=== PATIENT | male | born 1990 | race Caucasian/White ===

== ENCOUNTER 2016-12-10 04:30 | Emergency (ER) | payer SELFPAY ==
[2016-12-10] MEDS ORDERED: Sodium Chloride 0.9% 1,000 ML IV ONE ×2 (04:55→06:47)
[2016-12-10] MEDS ORDERED: Ondansetron 4 MG/2 ML SDV IV ONE (05:02)
[2016-12-10] MEDS ORDERED: HYDROmorphone 1 MG/ML Syringe IVPUSH ONE ×2 (05:03→07:06)
--- NOTE | 2016-12-10 05:04 | EDM.PDOC ---
<Camille Carbajal - Last Filed: 12/10/16 06:58> ED HPI GENERAL MEDICAL PROBLEM - General Chief Complaint: Headache Stated Complaint: MIGRAINE Time Seen by Provider: 12/10/16 04:40 Source of Information: Reports: Patient History Limitations: Reports: No Limitations - History of Present Illness INITIAL COMMENTS - FREE TEXT/NARRATIVE: c/o sever headache, starts on right side of head and moves to back of head. denies neck pain. general body aches. vomited [employer]INE. Has been trying tylenol and ibuprofen without relief. Unable to sleep due to head ache. Has had mild headaches but nothing this bad. Onset: Today Duration: Constant, Getting Worse Location: Reports: Head Quality: Reports: Throbbing Improves with: Reports: Immobilization Worsens with: Reports: Movement Headache Pain Score (Numeric/FACES): 9 - Related Data Allergies Allergy/AdvReac Type Severity Reaction Status Date / Time No Known Allergies Allergy Verified 12/10/16 04:35 Home Meds: Home Meds Cetirizine HCl/Pseudoephedrine [Zyrtec-D Tablet] 1 each PO DAILY PRN 12/10/16 [ History] Past Medical History - Past Health History Medical/Surgical History: Denies Medical/Surgical History Respiratory History: Reports: Asthma - Infectious Disease History Infectious Disease History: Reports: None Social & Family History - Family History Family Medical History: Noncontributory - Tobacco Use Smoking Status *Q: Never Smoker Second Hand Smoke Exposure: No - Caffeine Use Caffeine Use: Reports: Soda - Recreational Drug Use Recreational Drug Use: No ED ROS GENERAL - Review of Systems Constitutional: Reports: Fever HEENT: Denies: Throat Pain Respiratory: Reports: No Symptoms Cardiovascular: Reports: No Symptoms GI/Abdominal: Reports: Nausea, Vomiting Musculoskeletal: Reports: Back Pain (low chronic intermittent). Denies: Neck Pain Skin: Reports: No Symptoms Neurological: Reports: Headache. Denies: Confusion Psychiatric: Reports: No Symptoms - Physical Exam Exam: See Below Exam Limited By: No Limitations General Appearance: Alert, Moderate Distress Eye Exam: Bilateral Eye: EOMI, PERRL (4mm right upper lid droop) Ears: Normal External Exam, Normal TMs Nose: Normal Inspection Throat/Mouth: Normal Inspection Head Exam: Atraumatic, Normocephalic Neck: Normal Inspection, Full Range of Motion. No: Lymphadenopathy (L), Lymphadenopathy (R), Tender Lateral, Tender Midline Respiratory/Chest: No Respiratory Distress, Lungs Clear, Normal Breath Sounds Cardiovascular: Normal Peripheral Pulses GI/Abdominal: Normal Bowel Sounds, Soft Neuro Exam (Abbreviated): Alert, Oriented, Normal Cognition, Normal Reflexes. No: No Motor/Sensory Deficits Back Exam: Normal Inspection Extremities: Normal Inspection Psychiatric: Normal Affect, Normal Mood Skin Exam: Warm, Dry, Intact, Normal Color Course - Vital Signs Last Recorded V/S: Last Vital Signs Temp 37.3 C 12/10/16 06:56 Pulse 105 H 12/10/16 06:13 Resp 14 12/10/16 06:13 BP 112/60 12/10/16 06:13 Pulse Ox 97 12/10/16 06:13 - Orders/Labs/Meds Orders: Active Orders 24 hr Category Date Time Status CULTURE STREP A CONFIRMATION [] Stat Lab 12/10/16 05:09 Results LYME/B.BURGDORFERI IGG/IGM [REF] Stat Lab 12/10/16 07:56 Received STREP SCRN A RAPID W CULT CONF [] Stat Lab 12/10/16 05:09 Results WE[facility] VIRUS IGM [REF] Urgent Lab 12/10/16 05:00 Received Sodium Chloride 0.9% [Normal Saline] 1,000 ml Med 12/10/16 06:47 Active IV .BOLUS cefTRIAXone [Rocephin] 1 gm Med 12/10/16 08:11 Ordered Sodium Chloride 0.9% [Normal Saline] 50 ml IV ONETIME Medication Orders Sodium Chloride (Normal Saline) 1,000 mls @ 500 mls/hr IV .BOLUS ONE Stop: 12/10/16 08:46 Last Admin: 12/10/16 06:55 Dose: 500 mls/hr Labs: Laboratory Tests 12/10/16 12/10/16 12/10/16 Range/Units 05:00 05:00 05:00 WBC 8.2 (5.0-10.0) 10^3/uL RBC 5.12 (4.6-6.2) 10^6/uL Hgb 15.0 (14.0-18.0) g/dL Hct 43.9 (40.0-54.0) % MCV 85.7 (80-100) fL MCH 29.3 (27.0-34.0) pg MCHC 34.2 (33.0-35.0) g/dL Plt Count 222 (150-450) 10^3/uL Neut % (Auto) 83.6 H (42.2-75.2) % Lymph % (Auto) 11.2 L (20.5-50.1) % [place] % (Auto) 4.7 (2-8) % Eos % (Auto) 0.4 L (1.0-3.0) % Baso % (Auto) 0.1 (0.0-1.0) % Sodium 139 (135-145) mmol/L Potassium 3.6 (3.6-5.0) mmol/L Chloride 103 (101-111) mmol/L Carbon Dioxide 26.0 (21.0-31.0) mmol/L Anion Gap 13.6 BUN 16 (7-18) mg/dL Creatinine 1.0 (0.6-1.3) mg/dL Est Cr Clr Drug Dosing TNP Estimated GFR (MDRD) > 60 BUN/Creatinine Ratio 16.00 Glucose 122 H (74-105) mg/dL Calcium 9.2 (8.4-10.2) mg/dl Total Bilirubin 0.9 (0.2-1.0) mg/dL AST 26 (10-42) IU/L ALT 19 (10-60) IU/L Alkaline Phosphatase 81 (42-121) IU/L C-Reactive Protein < 0.5 (0.0-1.3) mg/dL Total Protein 7.8 (6.7-8.2) g/dl Albumin 4.5 (3.2-5.5) g/dl Globulin 3.3 Albumin/Globulin Ratio 1.36 Meds: Medications Generic Name Dose Route Start Last Admin Trade Name Freq PRN Reason Stop Dose Admin Sodium Chloride 1,000 mls @ 500 mls/hr 12/10/16 06:47 12/10/16 06:55 Normal Saline IV 12/10/16 08:46 500 mls/hr .BOLUS ONE Administration Discontinued Medications Generic Name Dose Route Start Last Admin Trade Name Freq PRN Reason Stop Dose Admin Hydromorphone HCl 1 mg 12/10/16 05:03 12/10/16 05:21 Dilaudid IVPUSH 12/10/16 05:04 1 mg ONETIME ONE Administration Hydromorphone HCl 1 mg 12/10/16 07:06 12/10/16 07:14 Dilaudid IVPUSH 12/10/16 07:07 1 mg ONETIME ONE Administration Sodium Chloride 1,000 mls @ 999 mls/hr 12/10/16 04:55 12/10/16 05:00 Normal Saline IV 12/10/16 05:55 999 mls/hr .BOLUS ONE Administration Ibuprofen 600 mg 12/10/16 06:16 12/10/16 06:22 Motrin PO 12/10/16 06:17 600 mg ONETIME ONE Administration Methylprednisolone Sodium Succinate 125 mg 12/10/16 07:09 12/10/16 07:20 Solu-Medrol IVPUSH 12/10/16 07:10 125 mg ONETIME ONE Administration Ondansetron HCl 4 mg 12/10/16 05:02 12/10/16 05:20 Zofran IV 12/10/16 05:03 4 mg ONETIME ONE Administration Ondansetron HCl Confirm 12/10/16 06:26 12/10/16 06:33 Zofran Odt Administered 12/10/16 06:27 Not Given Dose 8 mg .ROUTE .STK-MED ONE Oxycodone/Acetaminophen Confirm 12/10/16 06:26 12/10/16 06:33 Percocet 325-5 Mg Administered 12/10/16 06:27 Not Given Dose 2 tab .ROUTE .STK-MED ONE - Radiology Interpretation Free Text/Narrative:: CT head negative - Re-Assessments/Exams Free Text/Narrative Re-Assessment/Exam: 12/10/16 07:04 Pain improved with Dilaud. Preparing for discharge and worsening of headache rating 9/10 and increased pain with neck flexion 12/10/16 07:[address] Turpin with change of shift Departure - Departure Time of Disposition: 06:17 Disposition: Home, Self-Care 01 Condition: Fair Clinical Impression: Head ache Qualifiers: Headache type: unspecified Headache chronicity pattern: acute headache Intractability: not intractable Qualified Code(s): R51 - Headache - Discharge Information Instructions: General Headache Without Cause, [id number] Forms: ED Department Discharge Additional Instructions: zofran 4mg ODT one every 4 hours as needed for nausea percocet one every 6 hours as needed for pain decadron 4mg one tablet every 6 hours may alternate tylenol 1000mg every 6 hours and ibuprofen 600mg every 4 hours as needed rest push fluids follow up in clinic on Monday, Dec.13 for recheck return to ER if symptoms are worse at any time - My Orders Last 24 Hours: My Active Orders 12/10/16 07:56 LYME/B.BURGDORFERI IGG/IGM [REF] Stat 12/10/16 08:11 cefTRIAXone [Rocephin] 1 gm Sodium Chloride 0.9% [Normal Saline] 50 ml IV ONETIME - Assessment/Plan Last 24 Hours: My Active Orders 12/10/16 07:56 LYME/B.BURGDORFERI IGG/IGM [REF] Stat 12/10/16 08:11 cefTRIAXone [Rocephin] 1 gm Sodium Chloride 0.9% [Normal Saline] 50 ml IV ONETIME <Juan Turpin - Last Filed: 12/10/16 08:23> ED HPI GENERAL MEDICAL PROBLEM - History of Present Illness INITIAL COMMENTS - FREE TEXT/NARRATIVE: Assumed care of pt from Camille SANTOYO at 0700HR shift change. On recheck, pt reports he feels much better and would like to go home. Treatments [employer]ACHINE: Reports: Acetaminophen ED ROS GENERAL - Review of Systems Review Of Systems: See Below - Physical Exam Text/Narrative:: On recheck pt is A&O x3, Head is NC/AT, neck is nontender, no nuchal rigidity. Lungs clear, Heart RRR. Neuro no motor or sensory deficits. Skin normal to exam. Course - Re-Assessments/Exams Free Text/Narrative Re-Assessment/Exam: 12/10/16 08:16 I explained the exam findings, results of all diagnostic tests, working diagnosis, and any potential or additionally considered diagnoses, treatment/ disposition plan, self/home care instructions, rational for the diagnosis/ treatment plan/disposition plan, anticipated course of illness, and follow up instructions to the pt. I discussed indications for lumbar puncture, but currently pt reports minimal headache, no neck pain, has no nuchal rigidity, and normal neuro exam. I educated the pt as to the signs and symptoms that would indicate that he should return for reevaluation and consideration for lumbar puncture. The pt acknowledges understanding of the above explanation(s), and of the signs and symptoms which should prompt the return of the pt to the ER should those or any other concerning symptoms develop. Departure - Departure Time of Disposition: 08:20
[2016-12-10 05:44] LABS: CHLORIDE,CL 103 mmol/L (101-111); SODIUM,NA 139 mmol/L (135-145)
[2016-12-10] MEDS ORDERED: Ibuprofen 600 MG Tab PO ONE (06:16)
[2016-12-10] MEDS ORDERED: Ondansetron 4 MG Tab.DIS PO ONE (06:26)
[2016-12-10] MEDS ORDERED: Acetaminophen/oxyCODONE 325-5 MG Tab ONE (06:26)
[2016-12-10] MEDS ORDERED: Ondansetron 4 MG Tab.DIS ONE (06:26)
[2016-12-10] MEDS ORDERED: Acetaminophen/oxyCODONE 325-5 MG Tab PO ONE (06:26)
[2016-12-10] MEDS ORDERED: methylPREDNISolone Sodium Succinate 125 MG/2 ML SDV IVPUSH ONE (07:09)
[2016-12-10] MEDS ORDERED: cefTRIAXone 1 GM in Sodium Chloride 0.9% 50 ML IV ONE (08:11)
[2016-12-10 08:35] VITALS: BP 86/56
== END 2016-12-10 09:00 | disposition home or self-care (01) ==
LOC: DL.ED 04:30
DX: R51 Headache (principal); J45.909 Unspecified asthma, uncomplicated; Z79.899 Other long term (current) drug therapy
CPT/HCPCS: 36415; 70450; 80053; 85025; 86140; 86618; 86788; 87081; 87430; 87804; 96361; 96365; 96375; 96376; 99284; A9270; J0696; J1170; J2405; J2930; J7030; J7050

== ENCOUNTER 2017-06-09 16:09 | Emergency (ER) | payer OTHER, BC ==
[2017-06-09] MEDS ORDERED: Sodium Chloride 0.9% 10 ML Syringe FLUSH PRN (16:17)
[2017-06-09 16:19] VITALS: BP 139/76
[2017-06-09] MEDS: Sodium Chloride 0.9% 1,000 ML IV ONE (16:24)
[2017-06-09] MEDS: methylPREDNISolone Sodium Succinate 125 MG/2 ML SDV IVPUSH ONE (16:24)
[2017-06-09] MEDS: Albuterol 0.083% 2.5 MG/3 ML Neb Soln NEB ONE (16:33)
[2017-06-09] MEDS: diphenhydrAMINE 50 MG/ML SDV IVPUSH ONE (16:34)
[2017-06-09 16:42] LABS: CHLORIDE,CL 100 mmol/L (101-111); SODIUM,NA 136 mmol/L (135-145)
--- NOTE | 2017-06-09 16:59 | EDM.PDOC ---
Scribed by Reba Nina 06/09/17 [id number] for Juan Turpin MD ED HPI GENERAL MEDICAL PROBLEM - General Chief Complaint: Allergic Reaction Stated Complaint: [id number] ALLERGIC REACTION-DIFFICULTY BREATHING Time Seen by Provider: 06/09/17 16:15 Source of Information: Reports: Patient, RN, RN Notes Reviewed History Limitations: Reports: No Limitations - History of Present Illness INITIAL COMMENTS - FREE TEXT/NARRATIVE: Patient presents by private vehicle with onset of generalized itching, few small patches of hives and feeling of tightness in his throat and chest after exposure to an air borne irritant while at work. Patient was working on a door/ slot at a [employer] where there was a chemical smell in the air, which he believed triggered the reaction. He denies any swelling to the face, lips, tongue or mouth. Onset: Today Duration: Getting Worse Location: Reports: Generalized Quality: Reports: Ache Severity: Moderate Improves with: Reports: None Worsens with: Reports: None Associated Symptoms: Reports: No Other Symptoms Bilateral Chest Pain Score (Numeric/FACES): 6 - Related Data Allergies Allergy/AdvReac Type Severity Reaction Status Date / Time No Known Allergies Allergy Verified 12/10/16 04:35 Home Meds: Home Meds Cetirizine HCl/Pseudoephedrine [Zyrtec-D Tablet] 1 each PO DAILY PRN 12/10/16 [ History] Past Medical History - Past Health History Medical/Surgical History: Denies Medical/Surgical History Respiratory History: Reports: Asthma - Infectious Disease History Infectious Disease History: Reports: None Social & Family History - Family History Family Medical History: Noncontributory - Tobacco Use Smoking Status *Q: Never Smoker Second Hand Smoke Exposure: No - Caffeine Use Caffeine Use: Reports: Soda - Recreational Drug Use Recreational Drug Use: No ED ROS ALLERGIC REACTION - Review of Systems Review Of Systems: ROS reveals no pertinent complaints other than HPI. ED EXAM GENERAL NO PERIP PULSE - Physical Exam Exam: See Below Exam Limited By: No Limitations General Appearance: Alert, WD/WN, No Apparent Distress Eye Exam: Bilateral Eye: Normal Inspection Ears: Normal External Exam, Normal Canal, Hearing Grossly Normal, Normal TMs Nose: Normal Inspection, Normal Mucosa, No Blood Throat/Mouth: Normal Inspection, Normal Lips, Normal Teeth, Normal Gums, Normal Oropharynx, Normal Voice, No Airway Compromise Head: Atraumatic, Normocephalic Neck: Normal Inspection, Supple, Non-Tender, Full Range of Motion Respiratory/Chest: No Respiratory Distress, Lungs Clear, Normal Breath Sounds, No Accessory Muscle Use, Chest Non-Tender Cardiovascular: Normal Peripheral Pulses, Regular Rate, Rhythm, No Edema, No Gallop, No JVD, No Murmur, No Rub GI/Abdominal: Normal Bowel Sounds, Soft, Non-Tender, No Organomegaly, No Distention, No Abnormal Bruit, No Mass (Male) Exam: Deferred Rectal (Males) Exam: Deferred Back Exam: Normal Inspection, Full Range of Motion, NT Extremities: Normal Inspection, Normal Range of Motion, Non-Tender, Normal Capillary Refill, No Pedal Edema Neurological: Alert, Oriented, CN II-XII Intact, Normal Cognition, Normal Gait, Normal Reflexes, No Motor/Sensory Deficits Psychiatric: Anxious Skin Exam: Warm, Dry, Intact, Other (A few scattered patches of urticaria (hives ) on neck, upper chest and back.) Lymphatic: No Adenopathy Course - Vital Signs Last Recorded V/S: Last Vital Signs Temp 37.1 C 06/09/17 16:12 Pulse 90 06/09/17 16:12 Resp 18 06/09/17 16:12 BP 139/76 06/09/17 16:12 Pulse Ox 100 06/09/17 16:12 - Orders/Labs/Meds Orders: Active Orders 24 hr Category Date Time Status Peripheral IV Care [RC] . DIRECTED Care 06/09/17 16:18 Active RT Aerosol Therapy [RC] ASDIRECTED Care 06/09/17 16:18 Active Sodium Chloride 0.9% [Normal Saline] 1,000 ml Med 06/09/17 16:18 Active IV .BOLUS Sodium Chloride 0.9% [Saline Flush] Med 06/09/17 16:17 Active 10 ml FLUSH ASDIRECTED PRN Peripheral IV Insertion Adult [OM.PC] Stat Oth 06/09/17 16:17 Ordered Medication Orders Sodium Chloride (Normal Saline) 1,000 mls @ 999 mls/hr IV .BOLUS ONE Stop: 06/09/17 17:18 Last Admin: 06/09/17 16:24 Dose: 999 mls/hr Sodium Chloride (Saline Flush) 10 ml FLUSH ASDIRECTED PRN PRN Reason: Keep Vein Open Labs: Laboratory Tests 06/09/17 06/09/17 06/09/17 Range/Units 16:18 16:18 16:18 WBC 6.2 (5.0-10.0) 10^3/uL RBC 5.39 (4.6-6.2) 10^6/uL Hgb 15.6 (14.0-18.0) g/dL Hct 44.4 (40.0-54.0) % MCV 82.4 D (80-100) fL MCH 28.9 (27.0-34.0) pg MCHC 35.1 H (33.0-35.0) g/dL Plt Count 218 (150-450) 10^3/uL Neut % (Auto) 53.2 (42.2-75.2) % Lymph % (Auto) 37.5 (20.5-50.1) % [place] % (Auto) 6.6 (2-8) % Eos % (Auto) 2.4 (1.0-3.0) % Baso % (Auto) 0.3 (0.0-1.0) % Sodium 136 (135-145) mmol/L Potassium 3.2 L (3.6-5.0) mmol/L Chloride 100 L (101-111) mmol/L Carbon Dioxide 28.0 (21.0-31.0) mmol/L Anion Gap 11.2 BUN 16 (7-18) mg/dL Creatinine 1.0 (0.6-1.3) mg/dL Est Cr Clr Drug Dosing 95.67 mL/min Estimated GFR (MDRD) > 60 BUN/Creatinine Ratio 16.00 Glucose 102 (74-105) mg/dL Calcium 9.1 (8.4-10.2) mg/dl Total Bilirubin 1.0 (0.2-1.0) mg/dL AST 25 (10-42) IU/L ALT 18 (10-60) IU/L Alkaline Phosphatase 82 (42-121) IU/L C-Reactive Protein < 0.5 (0.0-1.3) mg/dL Total Protein 8.2 (6.7-8.2) g/dl Albumin 4.9 (3.2-5.5) g/dl Globulin 3.3 Albumin/Globulin Ratio 1.48 Meds: Medications Generic Name Dose Route Start Last Admin Trade Name Freq PRN Reason Stop Dose Admin Sodium Chloride 1,000 mls @ 999 mls/hr 06/09/17 16:18 06/09/17 16:24 Normal Saline IV 06/09/17 17:18 999 mls/hr .BOLUS ONE Administration Sodium Chloride 10 ml 06/09/17 16:17 Saline Flush FLUSH ASDIRECTED PRN Keep Vein Open Discontinued Medications Generic Name Dose Route Start Last Admin Trade Name Freq PRN Reason Stop Dose Admin Albuterol 2.5 mg 06/09/17 16:18 06/09/17 16:33 Proventil Neb Soln NEB 06/09/17 16:19 2.5 mg ONETIME ONE Administration Diphenhydramine HCl 25 mg 06/09/17 16:18 06/09/17 16:34 Benadryl IVPUSH 06/09/17 16:19 25 mg ONETIME ONE Administration Methylprednisolone Sodium Succinate 125 mg 06/09/17 16:18 06/09/17 16:24 Solu-Medrol IVPUSH 06/09/17 16:19 125 mg ONETIME ONE Administration - Re-Assessments/Exams Free Text/Narrative Re-Assessment/Exam: 06/09/17 16:56 Pt with complete resolution of Sx's following tx in ER. Departure - Departure Time of Disposition: 16:56 Disposition: Home, Self-Care 01 Condition: Good Clinical Impression: Acute allergic reaction Qualifiers: Encounter type: initial encounter Qualified Code(s): T78.40XA - Allergy, unspecified, initial encounter - Discharge Information Instructions: Contact Dermatitis, Hives, [id number] Forms: ED Department Discharge Additional Instructions: RX: Zyrtec 10mg. RX: Prednisone 20mg. Keep over the counter Benadryl 25mg on hand, and take 2 tablets (50mg) by mouth at first onset of any future allergic reaction(s). Do not drive or work for 8 hours after taking benadryl. Follow up in clinic if not completely improved in 3 days. Return to ER if worse at any time. - My Orders Last 24 Hours: My Active Orders 06/09/17 16:17 Sodium Chloride 0.9% [Saline Flush] 10 ml FLUSH ASDIRECTED PRN Peripheral IV Insertion Adult [OM.PC] Stat 06/09/17 16:18 Peripheral IV Care [RC] . DIRECTED RT Aerosol Therapy [RC] ASDIRECTED Sodium Chloride 0.9% [Normal Saline] 1,000 ml IV .BOLUS - Assessment/Plan Last 24 Hours: My Active Orders 06/09/17 16:17 Sodium Chloride 0.9% [Saline Flush] 10 ml FLUSH ASDIRECTED PRN Peripheral IV Insertion Adult [OM.PC] Stat 06/09/17 16:18 Peripheral IV Care [RC] . DIRECTED RT Aerosol Therapy [RC] ASDIRECTED Sodium Chloride 0.9% [Normal Saline] 1,000 ml IV .BOLUS I have read and agree with the documentation that has been completed regarding this visit. By signing this record, I attest that the documentation was completed in my physical presence and is an accurate record of the encounter.
== END 2017-06-09 17:10 | disposition home or self-care (01) ==
LOC: DL.ED 16:09
DX: J30.89 Other allergic rhinitis (principal); Z79.899 Other long term (current) drug therapy
CPT/HCPCS: 36415; 80053; 85025; 86140; 96361; 96374; 96375; 99285; J1200; J2930; J7030; J7620